=== PATIENT | female | born 1970 | race Caucasian/White ===

== ENCOUNTER 2021-04-27 17:34 | Emergency (ER) | payer OTHER, SELFPAY ==
[2021-04-27 17:36] VITALS: BP 164/92; PULSE 93; RESP 18; TEMP 36.9; O2SAT 98; BMI 31.1
[2021-04-27 18:15] LABS: Absolute Lymphocyte Count 2.59 X10^3/uL (0.83-4.51); Absolute Neutrophil Count 8.9 X10^3/uL (2.0-7.7); Basophil# 0.04 X10^3/uL; Basophil% 0.3 % (0-1); Eosinophil# 0.16 X10^3/uL; Eosinophils% 1.3 % (0-5); Hematocrit 32.5 % (37-47); Lymphocyte # 2.59 X10^3/ul (0.83-4.51); Lymphocyte % 20.7 % (19-41); Mean Corp Hgb Conc 30.8 g/dL (32-36); Mean Corpuscular Hgb 27.4 pg (27.0-32.0); Monocyte# 0.75 X10^3/uL; NRBC Flagged by Analyzer 0 % (0-5); Neutrophil # 8.91 X10^3/uL (2.7-7.7); Neutrophil % 71.2 % (47-70); Platelet Count 435 K/mm3 (150-450); RBC Distribution Width CV 15.9 % (11.6-14.6); RBC Distribution Width SD 50.9 fl (35.1-43.9); Red Blood Count 3.65 M/mm3 (4.2-5.4); White Blood Count 12.5 K/mm3 (4.4-11.0)
--- NOTE | 2021-04-27 18:23 | EDS_ITS ---
HPI HPI - Female History of Present Illness Chief Complaint: Vag Bleeding Detail of Chief Complaint: Vaginal bleeding with dyspnea on exertion and dyspnea at rest Informant: patient and spouse/S.O. Pain Onset: Month(s) (Onset beginning of March) Context: Sudden Onset Timing: Continuous Quality: Positive for Aching Location: - (Right and left lower quadrant/pelvic area) Current Severity: Mild Maximum Severity: Severe Worsened by: - (Nothing specific) Relieved by: - (Better with Tylenol) Bleeding Issue: Positive for Vaginal bleeding and Passing clots; Negative for Passing tissue Onset: Month(s) (Onset the beginning of March) Context: Sudden Onset Timing: Continuous Current Severity: Heavy Severity: Severe Maximum Severity: Heavy Vaginal Discharge Onset: Today and Yesterday Associated Symptoms Test: Negative Narrative Narrative: Patient states she was sent in for evaluation by by Dr. Justin to control the bleeding. Dr. Justin was paged. 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 With regards to the bleeding I was informed that the [facility] is deciding if they will pay for a hysterectomy. She states she has to be treated at [facility] because of 6 prior C-sections and adhesions. They believe her bleeding is due to fibroids She complains of dyspnea, dyspnea exertion and orthostatic symptoms. She also complains of vague abdominal discomfort. Prior similar symptoms: Yes Recent Illness/Hospitalization: Yes PFSH PFSH Medical History Anxiety Chronic pain Complication of section wound Depression Hyperlipidemia Non-smoker Home Medications hydrocodone-acetaminophen 1 tab PO Q6H PRN PRN 3 Days #10 tablet 04/27/21 [Rx Last Taken Unknown] ondansetron 4 mg PO Q8H PRN PRN #10 tab 04/27/21 [Rx Last Taken Unknown] Allergy/AdvReac Type Severity Reaction Status Date / Time acetaminophen [From Percocet] AdvReac Other Verified 04/27/21 17:35 oxycodone [From Percocet] AdvReac Other Verified 04/27/21 17:35 Social History (Updated 04/27/21 @ 18:[address] Jose L Crabtree MD) household members: spouse housing: house Smoking Status: Never smoker alcohol intake: current alcohol intake frequency: holidays/special occasions only substance use type: does not use ROS ROS ED Constitutional Constitutional ED: Denies chills, fever(s) or subjective Eyes Eyes: Denies blurry vision, change in vision or diplopia ENT ENT ED: Denies ear pain, rhinorrhea or sore throat Cardiovascular Cardiovascular: Denies chest pain, orthopnea or palpitations Respiratory/Chest Respiratory/Chest: Reports dyspnea and dyspnea on exertion; Denies cough, orthopnea, sputum or stridor Gastrointestinal Gastrointestinal: Reports abdominal pain and nausea; Denies constipation, diarrhea, melena or vomiting Genitourinary Genitourinary ED: Denies dysuria, hematuria or urinary frequency Musculoskeletal Musculoskeletal: Denies arthralgias, myalgias or neck pain Integumentary Denies rash Neurologic Neurologic: Reports weakness; Denies headache(s) or paresthesias Endocrine Endocrinology: Denies polydipsia, polyphagia or polyuria Hematologic/Lymphatic Hematologic/Lymphatic: Denies easy bleeding or easy bruising EXAM Physical Exam Const Vital Signs: 04/27/21 17:36 04/27/21 18:32 Temperature 98.4 F Temperature Source Temporal Pulse Rate 93 83 Respiratory Rate 18 14 Blood Pressure 164/92 H 147/84 H Blood Pressure Mean 116 105 Pulse Ox 98 97 Oxygen Delivery Method Room Air Room Air Positive well nourished, well developed and obese General Appearance ED: well developed Nutritional Appearance: obese HEENT Reports moist mucous membranes trauma and tenderness Eyes PERRL General Eye ED: Negative for scleral icterus Neck no lymphadenopathy, supple and no JVD Resp normal respiratory effort and clear to auscultation bilaterally Cardio regular rate, regular rhythm, S1 normal heart sound, no murmurs and no JVD GI normal to inspection, nondistended, normoactive bowel sounds, soft to palpation, non-tender and non-distended no CVA tenderness Back/Spine no CVA tenderness Extremity normal to inspection and full ROM General Extremety ED: Negative for edema General Extremity: Negative for edema Neuro oriented x3 and CN's II-XII intact bilaterally Sensorium / Orientation: alert Motor Exam: strength 5/5 throughout Psych mental status grossly normal Skin no rashes or lesions noted MDM MDM MDM Narrative Medical decision making narrative: Blood work was obtained. If patient is anemic since she is symptomatic we will transfuse. She was medicated for her pain. Per DIRECTOR OF ASSESSMENT on-call nothing is to be done with regards to the bleeding at this time. Lab Data Attestation: I reviewed the patient's lab results. Labs: Laboratory Results - last 24 hr 04/27/21 04/27/21 18:05 18:05 WBC 12.5 H RBC 3.65 L Hgb 10.0 L Hct 32.5 L MCV 89.0 MCH 27.4 MCHC 30.8 L RDW Std Deviation 50.9 H RDW Coeff of William 15.9 H Plt Count 435 MPV 9.0 Immature Gran % (Auto) 0.500 Neut % (Auto) 71.2 H Lymph % (Auto) 20.7 [place] % (Auto) 6.0 Eos % (Auto) 1.3 Baso % (Auto) 0.3 Absolute Neuts (auto) 8.9 H Absolute Lymphs (auto) 2.59 Nucleated RBC % 0 Sodium 137 Potassium 3.4 L Chloride 106 Carbon Dioxide 23.0 Anion Gap 8 BUN 6 L Creatinine 0.66 Estim Creat Clear Calc 92.78 Est GFR (MDRD) Af Amer 122 Est GFR (MDRD) Non-Af 101 BUN/Creatinine Ratio 9.1 L Glucose 89 Calcium 9.2 Treatment and Re-Evaluation Comments:: Dr. Hinson is on-call. She states she was not sent in by Dr. Justin. She she agrees to check for anemia since she has symptoms of symptomatic anemia and treat her pain. With regard to the bleeding she was told she needs a hysterectomy. There is no medication to be administered at this time. Discharge Plan Triage Chief Complaint: Vag Bleeding ED Provider: Jose L Crabtree Dx/Rx/DC Orders Clinical Impression: Abnormal vaginal bleeding, Intramural uterine fibroid, Anemia due to acute bl ood loss Instructions: ED Uterine Fibroids Prescriptions: New hydrocodone-acetaminophen [hydrocodone-acetaminophen] 1 TABLET tablet 1 tab PO Q6H PRN PRN (Reason: Pain) 3 Days Qty: 10 RF: 0 ondansetron [ondansetron] 4 MG tablet 4 mg PO Q8H PRN PRN (Reason: Nausea) Qty: 10 RF: 0 Primary Care Provider: Mark Gates Referrals: Guera Sethi MD [STAFF PHYSICIAN] - Keep [facility]ont appointment Mark Gates MD [Primary Care Provider] - Disposition Disposition: Home, Self Care
[2021-04-27 18:25] LABS: Anion Gap 8 (5-15); BUN 6 mg/dL (7-18); BUN/Creat Ratio 9.1 RATIO (10-20); Calcium,Total 9.2 mg/dL (8.5-10.1); Chloride 106 mmol/L (98-107); Creatinine, Serum 0.66 mg/dL (0.55-1.02); EST Glomerular Filtration Rate 101 mL/min (>60); Est Glom Filt Rate - Afr Amer 122 mL/min (>60); Estimated Creatinine Clearance 92.78 ml/min; Glucose 89 mg/dL (74-106); Potassium 3.4 mmol/L (3.5-5.1); Sodium Level 137 mmol/L (136-145)
[2021-04-27] MEDS: Ondansetron 4 MG/2 ML Vial IV (18:25)
[2021-04-27] MEDS: Morphine 4 MG/ML Syringe IV (18:25)
[2021-04-27 18:32] VITALS: BP 147/84; PULSE 83; RESP 14; O2SAT 97
[2021-04-27 19:15] VITALS: BP 144/84; PULSE 82; RESP 16; O2SAT 97
== END 2021-04-27 19:16 | disposition home or self-care (01) ==
PROVIDERS: Emergency Provider Emergency Medicine; PCP Family Medicine
DX: D25.1 Intramural leiomyoma of uterus (principal); N93.9 Abnormal uterine and vaginal bleeding, unspecified; D62 Acute posthemorrhagic anemia; R06.09 Other forms of dyspnea; E78.5 Hyperlipidemia, unspecified; G89.29 Other chronic pain; F32.9 Major depressive disorder, single episode, unspecified; F41.9 Anxiety disorder, unspecified; E66.9 Obesity, unspecified; Z79.899 Other long term (current) drug therapy
CPT/HCPCS: 80048; 85025; 96374; 96375; 99284; A4216; J2405